=== PATIENT | female | born 2000 | race Caucasian/White ===

== ENCOUNTER 2020-02-26 02:34 | Emergency (ER) | payer BC ==
[2020-02-26 02:42] VITALS: BP 119/73; PULSE 124; RESP 18; TEMP 98
--- NOTE | 2020-02-26 03:31 | XR ---
EXAMINATION TYPE: XR wrist complete RT DATE OF EXAM: 02/26/2020 COMPARISON: NONE HISTORY: Pain TECHNIQUE: 5 views FINDINGS: I see no fracture nor dislocation. Joint spaces are fairly normal. Metacarpals are intact. Scaphoid appears normal. IMPRESSION: Negative exam. No sign of a fracture.
--- NOTE | 2020-02-26 03:33 | XR ---
EXAMINATION TYPE: XR hand complete RT DATE OF EXAM: 02/26/2020 COMPARISON: NONE HISTORY: Pain TECHNIQUE: 3 views FINDINGS: On the lateral view there is a small step deformity in the cortex of the anterior base of t he fifth metacarpal. The other metacarpals appear intact. Joint spaces are normal. IMPRESSION: Nondisplaced fracture of the anterior base of the fifth metacarpal seen only on the later al view.
--- NOTE | 2020-02-26 03:34 | ED ---
Upper Extremity HPI - General Chief Complaint: Extremity Injury, Upper Stated Complaint: Wrist injury Time Seen by Provider: 02/26/20 03:24 Source: patient Mode of arrival: ambulatory Limitations: no limitations - History of Present Illness Initial Comments: This patient is a 19-year-old woman who presents to have evaluation of her right hand. She states that approximately 9 PM she punched a door frame due to anger. Patient denies previous surgery or injury to that hand or wrist. Patient denies any loss of function. MD Complaint: Injury to:: right, hand Onset/Timin -: hour(s) Other Extremity Injury: Hand: Right Other Injuries: none Handedness: right Place: home Improves With: immobilization Worsens With: movement of extremity Context: direct blow Associated Symptoms: denies other symptoms Treatments Prior to Arrival: cold therapy - Related Data Home Medications Medication Instructions Recorded Confirmed Albuterol Nebulizer 1 applicate IH QID PRN 03/01/16 03/04/16 Control Pill 1 tab PO QAM 03/01/16 03/04/16 Pulmicort Nebulizer 1 applicate IH TID PRN 03/01/16 03/04/16 Symbicort Inhaler 2 puff IH BID 03/01/16 03/04/16 Previous Rx's Medication Instructions Recorded Ofloxacin 0.3% Ophth Soln [Ocuflox 5 - 7 drops RIGHT EAR BID #10 03/04/16 Ophth Soln] bottle Allergies Allergy/AdvReac Type Severity Reaction Status Date / Time ibuprofen [From Motrin] Allergy Wheezing Verified 03/04/16 07:56 montelukast sodium Allergy depression Verified 03/04/16 07:56 [From Singulair] NSAIDS (Non-Steroidal Allergy Unknown Verified 02/26/20 02:42 Anti-Inflamma Review of Systems ROS Statement: Those systems with pertinent positive or pertinent negative responses have been documented in the HPI. ROS Other: All systems not noted in ROS Statement are negative. Musculoskeletal: Reports: as per HPI, joint swelling, arthralgia Neurological: Denies: weakness, numbness, paresthesias Past Medical History Past Medical History: Asthma Additional Past Medical History / Comment(s): migraines, History of Any Multi-Drug Resistant Organisms: None Reported Past Surgical History: Adenoidectomy, Ear Surgery, Tonsillectomy Additional Past Surgical History / Comment(s): tubes in ears Past Anesthesia/Blood Transfusion Reactions: No Reported Reaction Past Psychological History: No Psychological Hx Reported Smoking Status: Former smoker Past Alcohol Use History: None Reported Past Drug Use History: None Reported - Past Family History Mother Family Medical History: No Reported History General Exam Limitations: no limitations General appearance: alert, in no apparent distress Cardiovascular Exam: Present: other (Strong radial pulses and normal capillary refill.) Right Hand Wrist exam: Present: full ROM, tenderness, swelling. Absent: abrasion, laceration, ecchymosis, deformity, crepitus, dislocation, erythema, amputation, nail avulsion, subungual hematoma Neurosensory exam: Present: 2-point discrimination Vascular: Present: normal capillary refill, radial pulse (Normal) Neurological exam: Present: alert. Absent: motor sensory deficit Skin exam: Present: warm, dry, intact, normal color. Absent: rash Course Vital Signs 02/26/20 02/26/20 02:37 03:56 Temperature 98 F 98 F Pulse Rate 124 H 124 H Respiratory 18 18 Rate Blood Pressure 119/73 119/73 O2 Sat by Pulse 100 100 Oximetry Procedures - Orthopedic Splinting/Casting Injury #1 Side: right Upper Extremity Injury Location: hand Upper Extremity Immobilizer: ulnar gutter Disposition Clinical Impression: Fracture of hand Disposition: HOME SELF-CARE Condition: Good Instructions (If sedation given, give patient instructions): Hand Fracture (ED) Is patient prescribed a controlled substance at d/c from ED?: No Referrals: Krish Vargas MD [Primary Care Provider] - 1-2 days Mal Lyons DO [Medical Doctor] - 1-2 days
[2020-02-26] MEDS ORDERED: ACETAMINOPHEN TAB 325 MG TAB PO STA (03:46)
== END 2020-02-26 03:57 | disposition home or self-care (01) ==
LOC: EC 02:34
DX: S62.344A Nondisplaced fracture of base of fourth metacarpal bone, right hand, initial encounter for closed fracture (principal); J45.909 Unspecified asthma, uncomplicated; Z79.51 Long term (current) use of inhaled steroids; Z88.6 Allergy status to analgesic agent; Z88.8 Allergy status to other drugs, medicaments and biological substances; Z87.891 Personal history of nicotine dependence; W22.09XA Striking against other stationary object, initial encounter
CPT/HCPCS: 29125; 99283

== ENCOUNTER 2021-01-30 13:02 | Outpatient (CLI) | payer BC, OTHER ==
[2021-01-30 14:21] VITALS: BP 121/65; PULSE 90; RESP 14; TEMP 96.9
--- NOTE | 2021-03-15 11:17 | P.MSEPDOC ---
Presenting Problems - Arrival Data Date of Arrival on Unit: 01/30/21 Time of Arrival on Unit: 13:02 Mode of Transport: Ambulatory - Complaint OB-Reason for Admission/Chief Complaint: Decreased Movement Medical History - Information : 1 Para: 0 Term: 0 : 0 Abortions: Spontaneous or Elective: 0 Number of Living Children: 0 - Gestational Age Gestational Age by [place] (wks/days): 37 Weeks and 1 Days Review of Systems - Review of Systems Constitutional: No problems Breast: No problems ENT: No problems Cardiovascular: No problems Respiratory: No problems Gastrointestinal: No problems Genitourinary: No problems Musculoskeletal: No problems Neurological: No problems Skin: No problems Vital Signs - Temperature Temperature: 96.9 F Temperature Source: Tympanic - Pulse Right Brachial Pulse Rate: 90 Pulse Assessment Method: Automatic Cuff - Respirations Respiratory Rate: 14 Oxygen Delivery Method: Room Air - Blood Pressure Right Arm Blood Pressure: 121/65 Blood Pressure Mean: 83 Blood Pressure Source: Automatic Cuff Medical Screen Scoring - Assessment - Baby A Baseline FHR: 130 Physician Notification - Physician Notified Physician Notified Date: 01/30/21 Physician Notified Time: 13:40 Physician: Dr. Valentine New Order Received: Yes - Notification Comment Comment: d/c home Disposition - Disposition OB Disposition: Discharge to home Discharge Date: 01/30/21 Discharge Time: 13:45 I agree with the RN Medical Screening Exam: Yes Physician's MSE Comment: I have neither seen nor examined the patient. Case reviewed; plan agreed upon as documented in EMR&OBIX.: Yes Diagnosis: RELATED CONDITIONS, UNSPECIFIED, THIRD TRIMESTER
== END 2021-01-30 14:25 | disposition home or self-care (01) ==
LOC: FBPOP 13:02
PROVIDERS: ATTEND Obstetrics & Gynecology
DX: O36.8130 Decreased fetal movements, third trimester, not applicable or unspecified (principal); Z3A.37 37 weeks gestation of pregnancy; Z88.8 Allergy status to other drugs, medicaments and biological substances; Z87.891 Personal history of nicotine dependence
CPT/HCPCS: 59025; 99213

== ENCOUNTER 2021-02-02 20:39 | Outpatient (CLI) | payer BC, OTHER ==
[2021-02-02 22:33] VITALS: BP 133/76; PULSE 104; RESP 16; TEMP 97.2
--- NOTE | 2021-02-16 07:47 | P.MSEPDOC ---
Presenting Problems - Arrival Data Date of Arrival on Unit: 02/02/21 Time of Arrival on Unit: 20:39 Mode of Transport: Ambulatory - Complaint OB-Reason for Admission/Chief Complaint: Possible Onset of Labor Comment: contractions 5 mins apart Medical History - Information : 1 Para: 0 Term: 0 : 0 Abortions: Spontaneous or Elective: 0 Number of Living Children: 0 - Gestational Age Gestational Age by [place] (wks/days): 37 Weeks and 4 Days Review of Systems - Review of Systems Constitutional: No problems Breast: No problems ENT: No problems Cardiovascular: No problems Respiratory: No problems Gastrointestinal: No problems Genitourinary: No problems Musculoskeletal: No problems Neurological: No problems Skin: No problems Vital Signs - Temperature Temperature: 97.2 F Temperature Source: Temporal Artery Scan - Pulse Pulse Oximetery Pulse Rate: 104 Pulse Assessment Method: Pulse Oximetry - Respirations Respiratory Rate: 16 Oxygen Delivery Method: Room Air O2 Sat by Pulse Oximetry: 97 - Blood Pressure Left Arm Blood Pressure: 133/76 Blood Pressure Mean: 95 Blood Pressure Source: Automatic Cuff Medical Screen Scoring (Pre) - Cervical Exam Dilation: 1-3 cm = 1 Effacement: Exam Deferred Membranes: Intact - Uterine Contractions Frequency: > or = 36 weeks =2 Duration: > 40 seconds = 2 Intensity: N/A - Maternal Vital Signs Maternal Temperature: N/A Maternal Blood Pressure: N/A Signs of Preeclampsia: N/A Maternal Respirations: N/A - Maternal Trauma Maternal Trauma: N/A - Assessment - Baby A Baseline FHR: 120 Heart Rate - NICHD Category: Category I (Normal) = 0 NST: Reactive Position: N/A Station: N/A - Total Score - Baby A Total Score - Baby A: 5 - Total Score - Baby B Total Score - Baby B: 5 - Total Score - Baby C Total Score - Baby C: 5 - Level of Risk - Baby A Level of Risk - Baby A: Low (0-5) - Level of Risk - Baby B Level of Risk - Baby B: Low (0-5) - Level of Risk - Baby C Level of Risk - Baby C: Low (0-5) Physician Notification (Pre) - Physician Notified Physician Notified Date: 02/02/21 Physician Notified Time: 21:07 New Order Received: Yes - Notification Comment Comment: Dr. Olguin called, report given on maternal. and status, pt's complaints of contractions. since 1729, possible ROM, negative amnisure,. contractions 3-5mins apart, pt able to talk through. them. SVE /-2, NST reactive. Orders to recheck in. 1 hour and discharge if not cervical change. Pt to. keep her appointment for tomorrow with dr. hernandez Disposition - Disposition OB Disposition: Physician follow up in office, Discharge to home Discharge Date: 02/02/21 Discharge Time: 22:15 I agree with the RN Medical Screening Exam: Yes Case reviewed; plan agreed upon as documented in EMR&OBIX.: Yes Comments: Patient was neither seen nor examined by me Diagnosis: FALSE LABOR AT OR AFTER 37 COMPLETED WEEKS OF GESTATION
== END 2021-02-02 22:15 | disposition home or self-care (01) ==
LOC: FBPOP 20:39
PROVIDERS: ATTEND Obstetrics & Gynecology
DX: O47.1 False labor at or after 37 completed weeks of gestation (principal); Z3A.37 37 weeks gestation of pregnancy; Z88.6 Allergy status to analgesic agent; Z87.891 Personal history of nicotine dependence; Z88.8 Allergy status to other drugs, medicaments and biological substances
CPT/HCPCS: 59025; 84112; 99213

== ENCOUNTER 2021-02-12 06:35 | Inpatient (IN) | payer BC, OTHER ==
[2021-02-12] MEDS: LACTATED RINGERS 1,000 ML IV SCH ×3 (07:20→16:20)
[2021-02-12] MEDS ORDERED: OXYTOCIN 10 UNIT/ML 1 ML VIAL IM PRN (08:35)
[2021-02-12] MEDS ORDERED: METHYLERGONOVINE 0.2 MG/ML 1 ML AMP IM PRN (08:35)
[2021-02-12] MEDS ORDERED: CARBOPROST TROMETHAMINE 250 MCG/ML 1 ML AMP IM PRN (08:35)
[2021-02-12] MEDS ORDERED: TERBUTALINE 1 MG/ML VIAL SQ PRN (08:35)
[2021-02-12] MEDS ORDERED: LIDOCAINE 0.5% (PF) 5 MG/ML (50 ML SDV) SQ PRN (08:35)
[2021-02-12] MEDS ORDERED: BUTORPHANOL 1 MG/ML 1 ML VIAL IV PRN (08:37)
--- NOTE | 2021-02-12 08:42 | P.HPOB ---
History of Present Illness H&P Date: 02/12/21 Chief Complaint: 39-0/7 weeks, LGA, polyhydramnios The patient is a 20-year-old 1 para 0 admitted at 39-0/7 weeks as established by seven-week ultrasound. She is admitted for essentially elective induction with all signs reassuring, category 1 heart rate tracing. Her has been uncomplicated only by a late third trimester diagnosis of suspected macrosomia with growth at the 96 percentile. She is additionally found to have mild polyhydramnios. testing has been reassuring throughout. Her was otherwise uncomplicated and group B strep status is negative. Obstetrical history: 1 para 0 with current statistics listed in history of present illness. EDC of 02/19/2021 was established by seven-week ultrasound. Laboratory workup demonstrates a blood type of O- with a negative antibody screen. Rubella status is immune. Remainder of laboratory workup was within normal limits. Early Glucola as well as second trimester Glucola were within normal limits and group B strep status is negative. Gynecologic history: Unremarkable with no history of any infections to include STDs. Review of Systems Review of systems is confined to history of present illness. Past Medical History Past Medical History: Asthma Additional Past Medical History / Comment(s): migraines, History of Any Multi-Drug Resistant Organisms: None Reported Past Surgical History: Adenoidectomy, Ear Surgery, Tonsillectomy Additional Past Surgical History / Comment(s): tubes in ears Past Anesthesia/Blood Transfusion Reactions: No Reported Reaction Smoking Status: Never smoker - Past Family History Mother Family Medical History: No Reported History Medications and Allergies Home Medications Medication Instructions Recorded Confirmed Type Ferrous Sulfate [Iron] 1 tab PO DAILY 01/30/21 02/02/21 History Pnv,Calcium 72/Iron/Folic Acid 1 tablet PO DAILY 01/30/21 02/02/21 History [ Plus Tablet] Allergies Allergy/AdvReac Type Severity Reaction Status Date / Time ibuprofen [From Motrin] Allergy Wheezing Verified 02/02/21 21:14 montelukast sodium Allergy depression Verified 02/02/21 21:14 [From Singulair] NSAIDS (Non-Steroidal Allergy Unknown Verified 02/02/21 21:14 Anti-Inflamma Exam In general, this is a well-developed, well-nourished white female in no acute distress. Her heart has a regular rhythm and rate without murmur. Her lungs are clear to auscultation bilaterally in all gomez. Her abdomen is gravid, nondistended, has normal active bowel sounds, is soft, nontender, and without any palpable masses aside from the uterine fundus. Her extremities without any cyanosis, clubbing, or significant edema and are nontender to palpation bilaterally. Digital cervical examination demonstrates her cervix to be 1-2 sent meters dilated, 70% effaced, with the vertex in presentation at -2-3 s tation. Artificial rupture of membranes is carried out demonstrating clear fluid. Assessment and Plan (1) Term Current Visit: Yes Status: Acute Code(s): Z34.90 - ENCNTR FOR SUPRVSN OF NORMAL , UNSP, UNSP TRIMESTER SNOMED Code(s): 65984978 (2) Polyhydramnios Current Visit: Yes Status: Acute Code(s): O40.9XX0 - POLYHYDRAMNIOS, UNSP TRIMESTER, NOT APPLICABLE OR UNSP SNOMED Code(s): 07210959 (3) Large for gestational age fetus Current Visit: Yes Status: Acute Code(s): HCZ5547 - SNOMED Code(s): 201126434 Plan: The patient has been admitted for induction of labor. Pitocin augmentation has been started and she has undergone artificial rupture of membranes. She will continue to have close maternal and surveillance and expectant management will be practiced. She is a good candidate for either IV or epidural analgesia, whichever she may choose.
[2021-02-12] MEDS ORDERED: OXYTOCIN 30 UNITS/500 ML NS 30 UNIT in SALINE 1 500ML.BAG IV SCH ×2 (08:45→19:30)
[2021-02-12 09:25] LABS: Basophils # (A) 0.1 k/uL (0-0.2); Basophils % (A) 1 %; Eosinophils # (A) 0.2 k/uL (0-0.7); Eosinophils % (A) 2 %; HCT 31.8 % (34.0-46.0); HGB 10.8 gm/dL (11.4-16.0); Lymphocytes # (A) 1.9 k/uL (1.0-4.8); Lymphocytes % (A) 18 %; MCH 26.1 pg (25.0-35.0); MCHC 33.8 g/dL (31.0-37.0); MCV 77.2 fL (80.0-100.0); Mean Platelet Volume 7.3; Monocytes # (A) 0.6 k/uL (0-1.0); Monocytes % (A) 6 %; Neutrophils # (A) 7.3 k/uL (1.3-7.7); Neutrophils % (A) 72 %; Platelet Count 279 k/uL (150-450); RBC 4.12 m/uL (3.80-5.40); WBC 10.2 k/uL (4.0-11.0)
[2021-02-12] MEDS ORDERED: ROPIVACAINE 5MG/ML 20ML VIAL ONE (11:37)
[2021-02-12] MEDS ORDERED: SODIUM CHLORIDE 0.9% 100 ML BAG ONE (11:37)
[2021-02-12] MEDS ORDERED: fentaNYL (PF) 50 MCG/ML 5 ML AMP ONE (11:37)
[2021-02-12] MEDS ORDERED: SIMETHICONE 80 MG CHEWABLE PO PRN (19:17)
[2021-02-12] MEDS ORDERED: HYDROcodone/APAP 7.5-325MG 1 EACH TAB PO PRN (19:17)
[2021-02-12] MEDS ORDERED: LANOLIN CREAM 5 GM TUBE TOPICAL PRN (19:17)
[2021-02-12] MEDS ORDERED: HYDROCORTISONE 2.5% RECTAL CREAM 30 GM TUBE RECTAL PRN (19:17)
[2021-02-12] MEDS ORDERED: diphenhydrAMINE 25 MG CAP PO PRN (19:17)
[2021-02-12] MEDS ORDERED: ZOLPIDEM 5 MG TAB PO PRN (19:17)
[2021-02-12] MEDS ORDERED: HYDROcodone/APAP 5-325MG 1 EACH TAB PO PRN (19:17)
[2021-02-12] MEDS ORDERED: BENZOCAINE/MENTHOL SPRAY 1 GM/SPRAY AEROSOL TOPICAL PRN (19:17)
[2021-02-12] MEDS ORDERED: diphenhydrAMINE 50 MG CAP PO PRN (19:17)
[2021-02-12] MEDS ORDERED: diphenhydrAMINE 50 MG/ML 1 ML VIAL IVP PRN ×2 (19:17)
--- NOTE | 2021-02-12 19:21 | P.PROBDLV ---
Vaginal Delivery Note - . Vaginal Delivery Note: The patient is a 20-year-old 1 para 0 admitted at 39-0/7 weeks by good dating parameters. She is admitted for elective induction of labor with the diagnosis of polyhydramnios and suspected macrosomia, growth at the 96th percentile late in the third trimester. On labor and delivery, all signs were reassuring with a category 1 heart rate tracing. She had Pitocin augmentation started and underwent artificial rupture of membranes for clear f luid. She made fairly steady progress through the latent phase of labor and had an epidural catheter placed for analgesia. She then made fairly good progress to the active phase of labor and ultimately reached complete and +2 station. She began pushing and pushed for approximately 35 minutes to a normal spontaneous vaginal delivery of a viable 8 lbs. 5 oz. baby girl with Apgars of 7 at 1 minute and 8 at 5 minutes delivered in the left occiput anterior position. There was a nuchal cord 1 which was reduced following delivery of the infant. The placenta was delivered spontaneously, intact, and grossly normal with a grossly normal, roughly centrally inserted three-vessel cord. A second-degree midline episiotomy had been cut for the delivery in anticipation of possible shoulder dystocia secondary to macrosomia and was noted to have not extended. It was repaired in standard fashion using 3-0 chromic catgut without difficulty. Estimated blood loss for the entire case was approximately 250 mL. There were no complications. All sponge, instrument, and needle counts were correct. Both mother and are resting comfortably in recovery at this time.
[2021-02-12] MEDS: ACETAMINOPHEN TAB 325 MG TAB PO PRN (21:40)
[2021-02-12] MEDS: SENNOSIDES-DOCUSATE SODIUM 1 EACH TAB PO SCH (21:41)
[2021-02-12] MEDS: ESCITALOPRAM 10 MG TAB PO SCH (23:12)
[2021-02-13] MEDS ORDERED: Rhogam IMMUNE GLOBULIN 1,500 UNIT/1 ML IM ONE (01:32)
[2021-02-13] MEDS: ACETAMINOPHEN TAB 325 MG TAB PO PRN ×4 (02:36→21:35)
[2021-02-13] MEDS: SENNOSIDES-DOCUSATE SODIUM 1 EACH TAB PO SCH ×2 (07:46→21:30)
--- NOTE | 2021-02-13 08:52 | P.PNOBGVD ---
Subjective - Subjective Patient reports: Reports appetite normal, Reports voiding normally, Reports pain well controlled, Reports ambulating normally [place]: doing well, in NICU (Requiring high flow oxygen, currently beginning to wean) Objective - Latest Vital Signs Latest vital signs: Vital Signs Temp Pulse Resp BP Pulse Ox 02/13/21 08:00 98.0 F 71 16 102/61 02/13/21 04:00 98.3 F 84 16 110/66 99 02/12/21 23:50 98.5 F 82 16 105/66 98 02/12/21 21:12 100 16 114/70 02/12/21 20:42 98 F 102 H 16 114/70 02/12/21 20:12 96 16 112/64 02/12/21 19:57 109 H 16 108/64 02/12/21 19:42 100 16 104/62 02/12/21 19:27 95 16 98/56 02/12/21 19:12 114 H 16 103/67 Intake and Output 02/12/21 02/13/21 02/13/21 22:59 06:59 14:59 Intake Total 178.533 Balance 178.533 Intake: Intake, IV Titration 178.533 Amount Oxytocin 30 Units/500 ml 178.533 Ns 30 unit In Saline 1 500ml.bag @ Per Protocol IV [facility] Rx#:[id number] Other: # Voids 1 - Exam Extremities: Present: normal Abdomen: Present: normal appearance, soft Uterus: Present: normal, firm (The uterine fundus is tonic and nontender below the umbilicus.) - Labs Labs: Abnormal Lab Results - Last 24 Hours (Table) 02/12/21 Range/Units 07:15 Hgb 10.8 L (11.4-16.0) gm/dL Hct 31.8 L (34.0-46.0) % MCV 77.2 L (80.0-100.0) fL Assessment and Plan (1) Term Current Visit: Yes Status: Acute Code(s): Z34.90 - ENCNTR FOR SUPRVSN OF NORMAL , UNSP, UNSP TRIMESTER SNOMED Code(s): 40142490 (2) Polyhydramnios Current Visit: Yes Status: Acute Code(s): O40.9XX0 - POLYHYDRAMNIOS, UNSP TRIMESTER, NOT APPLICABLE OR UNSP SNOMED Code(s): 42224401 (3) Large for gestational age fetus Current Visit: Yes Status: Acute Code(s): KXE1427 - SNOMED Code(s): 111874522 (4) Normal spontaneous vaginal delivery Current Visit: Yes Status: Acute Code(s): O80 - ENCOUNTER FOR FULL-TERM UNCOMPLICATED DELIVERY SNOMED Code(s): 88540345 Plan: Continue routine care. I would anticipate discharge home tomorrow pending no complications. It is unclear at this point as to whether the infant will require a longer term stay.
[2021-02-13 09:35] LABS: Basophils % (A) 0 %; Eosinophils # (A) 0.1 k/uL (0-0.7); Eosinophils % (A) 1 %; HCT 31.9 % (34.0-46.0); HGB 10.3 gm/dL (11.4-16.0); Lymphocytes # (A) 1.9 k/uL (1.0-4.8); Lymphocytes % (A) 14 %; MCH 25.1 pg (25.0-35.0); MCHC 32.3 g/dL (31.0-37.0); MCV 77.8 fL (80.0-100.0); Mean Platelet Volume 7.3; Monocytes # (A) 0.7 k/uL (0-1.0); Monocytes % (A) 5 %; Neutrophils # (A) 10.2 k/uL (1.3-7.7); Neutrophils % (A) 78 %; Platelet Count 280 k/uL (150-450); RBC 4.09 m/uL (3.80-5.40); RDW 14.1 % (11.5-15.5); WBC 13.1 k/uL (4.0-11.0)
[2021-02-13] MEDS: ESCITALOPRAM 10 MG TAB PO SCH (21:31)
[2021-02-14] MEDS: ACETAMINOPHEN TAB 325 MG TAB PO PRN ×4 (01:46→16:29)
--- NOTE | 2021-02-14 10:16 | P.DS ---
Providers Date of admission: 02/12/21 06:35 Expected date of discharge: 02/14/21 Attending physician: Ed Camejo Primary care physician: Stated None - Discharge Diagnosis(es) (1) Large for gestational age fetus Current Visit: Yes Status: Acute (2) Normal spontaneous vaginal delivery Current Visit: Yes Status: Acute (3) Nuchal cord, delivered, current hospitalization Current Visit: Yes Status: Acute (4) Polyhydramnios Current Visit: Yes Status: Acute (5) Term Current Visit: Yes Status: Acute Hospital Course: This is a 20-year-old 1 now para 1 woman who is admitted at 39 weeks gestation for induction of labor. She had suspected macrosomia. Follow ing admission she underwent a Pitocin induction of labor with artificial rupture of membranes. She received an epidural anesthetic. She went on to deliver a liveborn female infant over a second-degree midline episiotomy weighing 8 lbs. 5 oz. Apgars 7 at 1 minute and 8 at 5 minutes. There was a nuchal cord 1. Please see the delivery summary for details. For supplemental oxygen. The patient's course was unremarkable. By day #1 she was ambulating and voiding without difficulty. Her lochia was moderate. She is using the breast pump successfully. By day #2 she continued to do well. She requested her Lexapro be restarted. Her lochia was decreasing. Her vital signs were stable. She was therefore discharged home with routine instructions for care and follow-up. Procedures: Normal spontaneous vaginal delivery and repair of second-degree midline episiotomy. Patient Condition at Discharge: Good Plan - Discharge Summary New Discharge Prescriptions: New Escitalopram [Lexapro] 10 mg PO DAILY@2100 #30 tab No Action Pnv,Calcium 72/Iron/Folic Acid [ Plus Tablet] 1 tablet PO DAILY MDD 1 tab Ferrous Sulfate [Iron] 1 tab PO DAILY MDD 325 mg Acetaminophen Tab [Tylenol] 650 mg PO Q4H MDD 4000 mg Calcium Carbonate [Tums] 500 mg PO TID MDD 1500 mg Albuterol Inhaler [Ventolin Hfa Inhaler] 2 puff INHALATION RT-TID MDD 6 puffs daily Discharge Medication List Ferrous Sulfate [Iron] 1 tab PO DAILY MDD 325 mg 01/30/21 [History] Pnv,Calcium 72/Iron/Folic Acid [ Plus Tablet] 1 tablet PO DAILY MDD 1 tab 01/30/21 [History] Acetaminophen Tab [Tylenol] 650 mg PO Q4H MDD 4000 mg 02/12/21 [History] Albuterol Inhaler [Ventolin Hfa Inhaler] 2 puff INHALATION RT-TID MDD 6 puffs daily 02/12/21 [History] Calcium Carbonate [Tums] 500 mg PO TID MDD 1500 mg 02/12/21 [History] Escitalopram [Lexapro] 10 mg PO DAILY@2100 #30 tab 02/14/21 [Rx] Follow up Appointment(s)/Referral(s): Ed Camejo MD [STAFF PHYSICIAN] - 6 Weeks Activity/Diet/Wound Care/Special Instructions: Follow-up in the office in 6 weeks . Call with any concerning signs or symptoms including heavy vaginal bleeding, severe abdominal pain, fever greater than 101, swelling or redness of the lower extremities, foul vaginal discharge, or signs of depression. Nothing in the vagina for 6 weeks after delivery, specifically no intercourse.
[2021-02-14] MEDS: SENNOSIDES-DOCUSATE SODIUM 1 EACH TAB PO SCH (10:55)
[2021-02-14 17:03] VITALS: RESP 14
[2021-02-14 17:05] VITALS: BP 112/80; PULSE 72; TEMP 97.6
== END 2021-02-14 17:08 | disposition home or self-care (01) | DRG 807 ==
LOC: 4FBP 06:35
PROVIDERS: ADMIT Obstetrics & Gynecology; ATTEND Obstetrics & Gynecology
PROC: 10E0XZZ Delivery of Products of Conception, External Approach (ICD-10-PCS; principal; 2021-02-12)
DX: O36.63X0 Maternal care for excessive fetal growth, third trimester, not applicable or unspecified (principal); Z37.0 Single live birth; J45.909 Unspecified asthma, uncomplicated; O40.3XX0 Polyhydramnios, third trimester, not applicable or unspecified; O69.81X0 Labor and delivery complicated by cord around neck, without compression, not applicable or unspecified; O99.52 Diseases of the respiratory system complicating childbirth; Z3A.39 39 weeks gestation of pregnancy
CPT/HCPCS: 85025; 85461; 86850; 86900; 86901

== ENCOUNTER 2022-01-14 08:00 | Day surgery (SDC) | payer BC, OTHER ==
[2022-01-12 12:57] VITALS: BMI 32.5
[~2022-01-14 08:00] MED LIST: FAMOTIDINE 20 MG/2 ML VIAL IV PRN
[2022-01-14] MEDS ORDERED: LACTATED RINGERS 1,000 ML IV SCH (08:18)
[2022-01-14] MEDS ORDERED: DEXAMETHASONE SOD PHOSPHATE 4 MG/ML 1 ML VIAL IV ONE (08:18)
[2022-01-14] MEDS ORDERED: ONDANSETRON 4 MG/2 ML VIAL IVP ONE (08:18)
[2022-01-14] MEDS: OXYMETAZOLINE 0.05% NASL SPRAY 1 SPRAY BOTTLE EA NOSTRIL PRN ×5 (08:35→08:55)
[2022-01-14] MEDS ORDERED: SUCCINYLCHOLINE CHLORIDE 100 MG/5 ML SYR IV ONE (10:08)
[2022-01-14] MEDS ORDERED: LIDOCAINE 1% INJ 10MG/ML (20 ML MDV) ONE (10:08)
[2022-01-14] MEDS ORDERED: PROPOFOL 10 MG/ML 20 ML VIAL IV ONE (10:08)
[2022-01-14] MEDS ORDERED: MIDAZOLAM 2 MG/2 ML VIAL ONE (10:08)
[2022-01-14] MEDS ORDERED: CIPROFLOX/FLUOCIN OTIC 0.25ML DROPERETTE OTIC ONE (10:21)
[2022-01-14] MEDS ORDERED: LIDOCAINE 1%-EPI 1:100,000 20 ML VIAL SQ ONE (10:23)
[2022-01-14 10:59] VITALS: TEMP 97.2
[2022-01-14] MEDS ORDERED: diphenhydrAMINE 50 MG/ML 1 ML VIAL IVP ONE (11:00)
--- NOTE | 2022-01-14 11:01 | P.OP ---
Date of Procedure: 01/14/22 Preoperative Diagnosis: Chronic otitis media with effusion Eustachian tube obstruction bilaterally Postoperative Diagnosis: same Procedure(s) Performed: Bilateral tympanostomy with tube placement Bilateral Balloon eustachian tuboplasty Anesthesia: LANE Surgeon: Shiraz Obrien Estimated Blood Loss (ml): 0 Pathology: none sent Condition: stable Disposition: PACU Indications for Procedure: This patient is a 21-year-old white female who is been complaining of ear pain pressure and has had persistent middle ear effusion. Eustachian tube dysfunction had been problematic for an extended period time and has failed medical therapy. She's had a lifetime of chronic ear problems. She also admits to decreased hearing along with her ear pain. Operative Findings: Patient had a bilateral middle ear effusion. The tympanic membranes had been myringosclerosis and atrophic changes noted. Eustachian tube orifice was edematous Description of Procedure: Patient was taken to the operative room and placed in the supine position. A general inhalation anesthetic was administered the patient by mask and subsequently intubated with a cuffed endotracheal tube by the department of anesthesia with a functioning IV line in place. Patient was monitored throughout the entire case by the department of anesthesia. Both ears were visualized with a 250 mm Zeiss microscope and cerumen and epithelial debris was removed. Tympanostomy incisions were made bilaterally and fluid was suctioned and tympanostomy tubes were inserted. We utilized ultraseal tubes. Ofloxacin drops was instilled bilaterally. The nose was decongested with Afrin nasal spray and with the 0 Calvert yajaira scope we entered the nose and identified the eustachian tube orifice. We utilized an a Rogelio balloon for insufflation of the eustachian tube. This was done in a standard protocol fashion. This was done bilaterally. Both eustachian tubes were bilaterally insufflated and the patient tolerated this well. All instrumentation was removed. The patient was taken to postanesthesia recovery in excellent condition.
[2022-01-14] MEDS ORDERED: SODIUM CHLORIDE 0.9% 1,000 ML IV ONE (11:33)
[2022-01-14 11:36] VITALS: RESP 18
[2022-01-14 11:52] VITALS: BP 107/65; PULSE 63
== END 2022-01-14 12:38 | disposition home or self-care (01) ==
LOC: OR 08:00
PROVIDERS: ATTEND Otolaryngology
DX: H65.493 Other chronic nonsuppurative otitis media, bilateral (principal); H68.133 Extrinsic cartilagenous obstruction of Eustachian tube, bilateral; H90.0 Conductive hearing loss, bilateral; J45.20 Mild intermittent asthma, uncomplicated; G43.909 Migraine, unspecified, not intractable, without status migrainosus; H93.19 Tinnitus, unspecified ear; L30.9 Dermatitis, unspecified; Z79.899 Other long term (current) drug therapy; Z88.6 Allergy status to analgesic agent; Z88.8 Allergy status to other drugs, medicaments and biological substances; Z90.89 Acquired absence of other organs; Z98.890 Other specified postprocedural states; Z82.5 Family history of asthma and other chronic lower respiratory diseases
CPT/HCPCS: 81025; 69436; C1726; J2250; J1200; J1100; J2405; J2001; J0330; J2704

== ENCOUNTER 2022-04-09 14:49 | Emergency (ER) | payer BC, OTHER ==
[2022-04-09 14:54] VITALS: BP 117/70; PULSE 89; RESP 20; TEMP 98.2
[2022-04-09 15:16] LABS: Basophils % (A) 1 %; Eosinophils # (A) 0.2 k/uL (0-0.7); Eosinophils % (A) 2 %; HCT 41.6 % (34.0-46.0); HGB 13.6 gm/dL (11.4-16.0); Lymphocytes # (A) 1.7 k/uL (1.0-4.8); Lymphocytes % (A) 25 %; MCH 27.5 pg (25.0-35.0); MCHC 32.6 g/dL (31.0-37.0); MCV 84.1 fL (80.0-100.0); Mean Platelet Volume 7.6; Monocytes # (A) 0.4 k/uL (0-1.0); Monocytes % (A) 6 %; Neutrophils # (A) 4.3 k/uL (1.3-7.7); Neutrophils % (A) 64 %; Platelet Count 263 k/uL (150-450); RBC 4.94 m/uL (3.80-5.40); WBC 6.7 k/uL (3.8-10.6)
[2022-04-09 15:25] LABS: ALT 11 U/L (4-34); AST 20 U/L (14-36); African American GFR (CKD) >90 (>60 ml/min/1.73 sqM); Albumin 4.5 g/dL (3.5-5.0); Alkaline Phosphatase 119 U/L (38-126); Anion Gap 8 mmol/L; Blood Urea Nitrogen 8 mg/dL (7-17); Calcium 9.4 mg/dL (8.4-10.2); Carbon Dioxide 25 mmol/L (22-30); Chloride 104 mmol/L (98-107); Glucose 93 mg/dL (74-99); Non-African American GFR(CKD) >90 (>60 ml/min/1.73 sqM); Sodium 137 mmol/L (137-145); Total Bilirubin 0.4 mg/dL (0.2-1.3); Total Protein 7.5 g/dL (6.3-8.2)
== END 2022-04-09 17:03 | disposition left against medical advice (07) ==
LOC: EC 14:49
DX: Z53.21 Procedure and treatment not carried out due to patient leaving prior to being seen by health care provider (principal); N93.9 Abnormal uterine and vaginal bleeding, unspecified
CPT/HCPCS: 36415; 80053; 85025; 99499

== ENCOUNTER → 2022-04-14 | Outpatient (CLI) | payer BC, OTHER ==
--- NOTE | 2022-04-14 18:28 | CT ---
EXAMINATION TYPE: CT abdomen pelvis w con DATE OF EXAM: 04/14/2022 COMPARISON: None HISTORY: low abd pain w/ blood in stool CT DLP: 1036.5 mGycm Automated exposure control for dose reduction was used. CONTRAST: Performed with IV Contrast, patient injected with 100ml mL of Isovue 300. Images obtained from the diaphragm to the floor the pelvis with oral and IV contrast. Lung bases are clear. No pleural effusion. Heart appears normal. No pericardial effusion. Liver splee n and stomach pancreas gallbladder appear intact. The bile duct are not dilated. There is no adrenal mass. Kidneys of normal size and contour. No hydronephrosis. Ureters are not dila iwona. There is no retroperitoneal adenopathy. Bladder distends smoothly. No inguinal hernia. Uterus is anteverted. There is IUD in good position in the uterine fundus. No pelvic mass. No free fluid in th e pelvis. Appendix is posterior and appears normal. There is no mesenteric edema. No ascites or free air. There is no bowel obstruction. Small bowel celso yissel is normal. There is bilateral L5 spondylolysis without any significant spondylolisthesis. Lumbar disc spaces are normal. Bony pelvis is intact. The hip joints are intact. IMPRESSION: Normal appendix. Negative CT scan abdomen and pelvis. L5 spondylolysis.
== END | disposition home or self-care (01) ==
LOC: RADCTMAIN 15:56
PROVIDERS: ATTEND Family Medicine
DX: R10.30 Lower abdominal pain, unspecified (principal)
CPT/HCPCS: 74177; Q9967

== ENCOUNTER → 2023-03-09 | Outpatient (CLI) | payer BC, OTHER ==
[2023-03-09 13:04] LABS: Basophils % (A) 0 %; Eosinophils # (A) 0.2 k/uL (0-0.7); Eosinophils % (A) 3 %; HGB 12.5 gm/dL (11.4-16.0); Lymphocytes # (A) 1.8 k/uL (1.0-4.8); Lymphocytes % (A) 27 %; MCHC 31.9 g/dL (31.0-37.0); MCV 84.6 fL (80.0-100.0); Mean Platelet Volume 8.2; Monocytes # (A) 0.4 k/uL (0-1.0); Monocytes % (A) 6 %; Neutrophils # (A) 4.2 k/uL (1.3-7.7); Neutrophils % (A) 63 %; Platelet Count 260 k/uL (150-450); RBC 4.61 m/uL (3.80-5.40); RDW 12.8 % (11.5-15.5); WBC 6.7 k/uL (3.8-10.6)
--- NOTE | 2023-03-09 13:09 | CT ---
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 FINDINGS: The external auditory canals are patent bilaterally. Mastoid air cells show no evidence of abnormal opacification bilaterally. The middle ear ossicles are symmetric and unremarkable. There is no evidence of suspicious surrounding soft tissue density to suggest cholesteatoma. The scutum is preserved bilaterally. The cochlea and the semicircular canals are symmetric and unremarkable. Ves tibular aqueduct and internal carotid canal appear unremarkable. Temporomandibular joints are mainta ined bilaterally. Mild periosteal thickening maxillary sinuses and ethmoid air cells. Incidental maribel ateral middle turbinate esau bullosa. Ostiomeatal units appear patent. IMPRESSION: No significant abnormality seen to account for patient's symptoms.
[2023-03-09 13:32] LABS: T4, Free (Free Thyroxine) 1.2 ng/dL (0.78-2.19)
== END | disposition home or self-care (01) ==
LOC: RADCTMAIN 12:12
PROVIDERS: ATTEND Otolaryngology
DX: H90.71 Mixed conductive and sensorineural hearing loss, unilateral, right ear, with unrestricted hearing on the contralateral side (principal)
CPT/HCPCS: 70480; 82306; 82607; 84439; 84443; 85025; 86038

== ENCOUNTER 2023-09-09 12:23 | Day surgery (SDC) | payer BC, OTHER ==
[~2023-09-09 12:23] MED LIST changes: -FAMOTIDINE 20 MG/2 ML VIAL IV PRN; +LACTATED RINGERS 1,000 ML IV SCH; +LIDOCAINE 1% (10MG/ML) FOR IV START INTRADERMA PRN
[2023-09-09 13:34] VITALS: TEMP 97.6
[2023-09-09] MEDS ORDERED: PROPOFOL 10 MG/ML 20 ML VIAL IV ONE (13:54)
[2023-09-09] MEDS ORDERED: LIDOCAINE 1% INJ 10MG/ML (20 ML MDV) ONE (13:54)
--- NOTE | 2023-09-09 14:09 | P.PCN ---
Date of Procedure: 09/09/23 Procedure(s) Performed: BRIEF HISTORY: Patient is a 23-year-old pleasant white female scheduled for an elective colonoscopy as a part of evaluation of intermittent rectal bleeding for the last 1 year duration. PROCEDURE PERFORMED: Colonoscopy. PREOPERATIVE DIAGNOSIS: Intermittent rectal bleeding of 1 year duration. IV sedation per Anesthesia. PROCEDURE: After informed consent was obtained, the patient, was brought into the endoscopy unit. IV sedation was administered by Anesthesia under continuous monitoring. Digital rectal examination was normal. Initially the Olympus CF-160 flexible video colonoscope was then inserted in the rectum, gradually advanced into the cecum without any difficulty. Careful examination was performed as the scope was gradually being withdrawn. Ileocecal valve and the appendiceal orifice were visualized and appeared normal. Prep was excellent. Mucosa of the cecum, ascending colon, transverse colon, descending colon, sigmoid colon, and rectum appeared normal. Retroflexion was performed in the rectum and no lesions were seen. The patient tolerated the procedure well. IMPRESSION: Normal-appearing colon from rectum to cecum with no evidence of colitis or colorectal neoplasia . RECOMMENDATIONS: Findings of this examination were discussed with the patient as well as a family.. She was advised to be a high-fiber diet and take fiber supplements a regular basis and avoid straining and constipation.
[2023-09-09] MEDS ORDERED: LACTATED RINGERS 1,000 ML IV ONE (14:11)
[2023-09-09 14:47] VITALS: BP 96/63; PULSE 57; RESP 6
== END 2023-09-09 14:43 | disposition home or self-care (01) ==
LOC: ORWHC2ENDO 12:23
PROVIDERS: ATTEND Internal Medicine Gastroenterology
DX: K62.5 Hemorrhage of anus and rectum (principal); J45.909 Unspecified asthma, uncomplicated; F12.90 Cannabis use, unspecified, uncomplicated; J95.851 Ventilator associated pneumonia; G43.909 Migraine, unspecified, not intractable, without status migrainosus; Z88.1 Allergy status to other antibiotic agents; Z88.6 Allergy status to analgesic agent
CPT/HCPCS: 45378; 81025

== ENCOUNTER → 2023-10-19 | Outpatient (CLI) | payer BC ==
--- NOTE | 2023-10-19 10:11 | US ---
EXAMINATION TYPE: US abdomen complete DATE OF EXAM: 10/19/2023 COMPARISON: Correlation CT studies 04/14/2022 CLINICAL INDICATION: Female, 23 years old with history of R10.9 ABD PAIN; pain x 1 year. TECHNIQUE: Multiple sonographic images of the abdomen are obtained. FINDINGS: EXAM MEASUREMENTS: Liver Length: 15.5 cm Gallbladder Wall: 0.18 cm CBD: 0.28 cm Spleen: 10.8 cm Right Kidney: 12.0 x 5.0 x 4.9 cm Left Kidney: 12.0 x 5.2 x 5.0 cm MACHINE INSPECTOR NOTES: Limited due to gas. Pancreas: Not well seen. Liver: Mild increased echogenicity. Slight heterogeneous echotexture. No focal lesion seen. Gallbladder: Appearance of Phrygian's cap. Folds noted. No gallstones or abnormal distention. Evidence for sonographic Chicas's sign: No CBD: Appears wnl Spleen: Appears wnl Right Kidney: No hydronephrosis or masses seen Left Kidney: No hydronephrosis or masses seen Upper IVC: Appears wnl Abd Aorta: Appears wnl IMPRESSION: 1. There may be underlying hepatic steatosis or other nonspecific hepatocellular disease. 2. No gallstones or biliary ductal dilatation.
== END | disposition home or self-care (01) ==
LOC: RADUSWWP 07:07
PROVIDERS: ATTEND Family Medicine
DX: R10.9 Unspecified abdominal pain (principal)
CPT/HCPCS: 76700

== ENCOUNTER → 2023-11-02 | Outpatient (CLI) | payer BC ==
--- NOTE | 2023-11-02 09:31 | NM ---
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 Gallbladder function was also assessed after the administration of ensure drink and additional scintigraphic images were obtained of the abdomen. A re gion of interest was drawn over the gallbladder and a timing activity curve was generated. The gallbl adder ejection fraction was calculated. FINDINGS: Normal uptake of radiotracer was identified within the liver with excretion into the hepatic and comm on biliary ducts. There was normal progressive washout of the liver over the course of the study. Rad iotracer uptake within the gallbladder as well as small bowel activity was identified. Maximum calculated gallbladder ejection fraction is: 90% at 30 minutes (Normal gallbladder ejection fraction is > 35%) IMPRESSION: 1. Normal hepatobiliary scan. 2. Normal ejection fraction.
== END | disposition home or self-care (01) ==
LOC: RADNMMAIN 06:59
PROVIDERS: ATTEND Family Medicine
DX: Q44.1 Other congenital malformations of gallbladder (principal)
CPT/HCPCS: 78227; A9537; J2805

== ENCOUNTER → 2024-04-06 | Outpatient (CLI) | payer BC ==
--- NOTE | 2024-04-06 10:44 | US ---
EXAMINATION TYPE: US thyroid st tissue head/neck DATE OF EXAM: 04/06/2024 COMPARISON: NONE CLINICAL INDICATION: Female, 23 years old with history of R09.89 OTH SYMPTOMS AND SIGNS INVOLVING CIR C AND N; Difficulty swallowing, feeling of lump in throat for 2 weeks. GLAND SIZE: Right Lobe: 4.6 x 1.6 x 1.4 cm Overall Parenchyma: homogeneous Left Lobe: 3.9 x 1.1 x 1.3 cm Overall Parenchyma: homogeneous Isthmus Thickness: 0.2 cm NODULES RIGHT: # of nodules measured on right: sub-centimeter cystic nodule noted LEFT: # of nodules measured on left: 0 ISTHMUS: # of nodules measured in the isthmus: 0 Bilateral neck scanned, lymph nodes visualized, largest = 1.8 x 0.7 x 0.9cm on the right and 1.3cm on the left . IMPRESSION: Couple lymph nodes present within the left neck at the palpable region.
== END | disposition home or self-care (01) ==
LOC: RADUSWWP 09:49
PROVIDERS: ATTEND Family Medicine
DX: R09.89 Other specified symptoms and signs involving the circulatory and respiratory systems (principal); R59.0 Localized enlarged lymph nodes
CPT/HCPCS: 76536

== ENCOUNTER 2024-11-29 19:12 | Emergency (ER) | payer BC, OTHER ==
[2024-11-29 19:21] VITALS: RESP 18; TEMP 98.2
--- NOTE | 2024-11-29 19:56 | ED ---
General Adult HPI - General Chief complaint: Back Pain/Injury Stated complaint: back pain 22 weeks preg Time Seen by Provider: 11/29/24 19:33 Source: patient Mode of arrival: ambulatory - History of Present Illness Initial comments: Dictation was produced using [employer] dictation software. please excuse any grammatical, word or spelling errors. Chief Complaint: 24-year-old female with sciatica History of Present Illness: Patient 24-year-old female she has past medical history of sciatica. She is 22 weeks and states that her last couple days she has been having worsening sciatica pain. Patient denies any complaints. She follows up with Dr. Virginie Green. Patient states that feels like her symptoms are bad that it causes tingling to her right lower extremity. States that it is painful whenever she tries to stand or sit on that area. The ROS documented in this emergency department record has been reviewed and confirmed by me. Those systems with pertinent positive or negative responses have been documented in the HPI. All other systems are other negative and/or noncontributory. - Related Data Home Medications Medication Instructions Recorded Confirmed No Known Home Medications 01/12/22 11/29/24 Allergies Allergy/AdvReac Type Severity Reaction Status Date / Time ibuprofen [From Motrin] Allergy Wheezing Verified 11/29/24 20:38 montelukast sodium Allergy depression Verified 11/29/24 20:38 [From Singulair] NSAIDS (Non-Steroidal Allergy Unknown Verified 11/29/24 20:38 Anti-Inflamma Review of Systems ROS Statement: Those systems with pertinent positive or pertinent negative responses have been documented in the HPI. ROS Other: All systems not noted in ROS Statement are negative. Past Medical History Past Medical History: Asthma Additional Past Medical History / Comment(s): migraines, History of Any Multi-Drug Resistant Organisms: None Reported Past Surgical History: Adenoidectomy, Ear Surgery, Tonsillectomy Additional Past Surgical History / Comment(s): tubes in ears, WISDOM TEETH REMOVED UNDER ANESTHESIA Past Anesthesia/Blood Transfusion Reactions: No Reported Reaction Past Psychological History: No Psychological Hx Reported Smoking Status: Vaper - Past Family History Mother Family Medical History: No Reported History General Exam - General Exam Comments Initial Comments: PHYSICAL EXAM: General Impression: Alert and oriented x3, not in acute distress HEENT: Normocephalic atraumatic, extra-ocular movements intact, pupils equal and reactive to light bilaterally, mucous membranes moist. Cardiovascular: Heart regular rate and rhythm Chest: Able to complete full sentences, no retractions, no tachypnea Abdomen: abdomen soft, non-tender, non-distended, no organomegaly Musculoskeletal: Pulses present and equal in all extremities, no peripheral edema Motor: no focal deficits noted Neurological: CN II-XII grossly intact, no focal motor or sensory deficits noted Skin: Intact with no visualized rashes Psych: Normal affect and mood Course Vital Signs 11/29/24 11/29/24 19:15 20:40 Temperature 98.2 F Pulse Rate 98 88 Respiratory 18 18 Rate Blood Pressure 126/75 122/73 O2 Sat by Pulse 99 97 Oximetry - Reevaluation(s) Reevaluation #1: 11/29/24 20:07 Given that patient is she does not qualify for steroids certain analgesics. Patient offered 2 mg IM morphine. Case discussed with Dr. Singh where states that he does not really have much recommendations except to refer patient to physical therapy. Medical Decision Making - Medical Decision Making Was pt. sent in by a medical professional or institution (, PA, CT TECHNICIAN, urgent care, hospital, or fdc...) When possible be specific @ -No Did you speak to anyone other than the patient for history (EMS, parent, family, police, friend...)? What history was obtained from this source @ -No Did you review nursing and triage notes (agree or disagree)? Why? @ -I reviewed and agree with nursing and triage notes Were old charts reviewed (outside hosp., previous admission, EMS record, old EKG, old radiological studies, urgent care reports/EKG's, fdc records)? Report findings @ -No old charts were reviewed Differential Diagnosis (chest pain, altered mental status, abdominal pain women, abdominal pain men, vaginal bleeding, musculoskeletal, weakness, fever, dyspnea, syncope, headache, dizziness, GI bleed, back pain, seizure, CVA, palpatations, mental health)? @ -Differential Back Pain: Strain, zoster, cauda equina syndrome, epidural abscess, vertebral osteomyelitis, discitis, fracture, subluxation, disc herniation, DJD, spinal stenosis, dissection, AAA, pancreatitis, peptic ulcer disease, pyelonephritis, kidney stone, this is not meant to be an all-inclusive list. EKG interpreted by me (3pts min.). @ -None done X-rays interpreted by me (1pt min.). @ -None done CT interpreted by me (1pt min.). @ -None done U/S interpreted by me (1pt. min.). @ -None done What testing was considered but not performed or refused? (CT, X-rays, U/S, labs)? Why? @ -None What meds were considered but not given or refused? Why? @ -None Was smoking cessation discussed for >3mins.? @ -No Were there social determinants of health that impacted care today? How? (Homelessness, low income, unemployed, alcoholism, drug addiction, transpo rtation, low edu. Level, literacy, decrease access to med. care, group home, rehab)? @ -No Was there de-escalation of care discussed even if they declined (Discuss DNR or withdrawal of care, Hospice)? DNR status @ -No What co-morbidities impacted this encounter? (DM, HTN, Smoking, COPD, CAD, Cancer, CVA, ARF, Chemo, Hep., AIDS, mental health diagnosis, sleep apnea, morbid obesity)? @ -None Was patient admitted / discharged? Hospital course, mention meds given and route, prescriptions, significant lab abnormalities, going to OR and other pertinent info. @ -24-year-old female with acute on chronic sciatica. Vital signs stable. Patient has no red flag features. Not a candidate for x-ray or analgesics or steroids. Case discussed with coding advisor recommended that there is not much for us to do except to refer her to physical therapy. Patient given 2 mg IM morphine. Patient did not feel any significant relief with the morphine. She states that she would like to be discharged and go up to the labor and delivery. Patient discharged. Did you discuss the management of the patient with other professionals (professionals i.e. , PA, CT TECHNICIAN, lab, RT, psych nurse, social media marketing manager, motion picture director, teacher, recreation officer, major case detective)? Give summary @ -No Was critical care preformed (if so, how long)? @ -No Undiagnosed new problem with uncertain prognosis? @ -No Drug Therapy requiring intensive monitoring for toxicity (Heparin, Nitro, Insulin, Cardizem)? @ -No Were any procedures done? @ -No Diagnosis/symptom? Acute, or Chronic, or Acute on Chronic? Uncomplicated (without systemic symptoms) or Complicated (systemic symptoms)? @ -Sciatica Side effects of treatment? @ -No Exacerbation, Progression, or Severe Exacerbation? @ -No Poses a threat to life or bodily function? How? (Chest pain, USA, SC, pneumonia, PE, COPD, DKA, ARF, appy, cholecystitis, CVA, Diverticulitis, Homicidal, Suicidal, threat to staff... and all critical care pts) @ -yes Disposition Clinical Impression: Sciatica Disposition: OTHER INSTITUTION NOT DEFINED Condition: Fair Instructions (If sedation given, give patient instructions): Sciatica (ED) Additional Instructions: [facility] [address] [place] [address] Get Directions Hours TUESDAY: 07:30 AM - 06:00 PM TUESDAY: 07:00 AM - 06:00 PM TUESDAY: 07:00 AM - 06:00 PM TUESDAY: 07:00 AM - 06:00 PM TUESDAY: 07:00 AM - 05:30 PM TUESDAY: TUESDAY: Is patient prescribed a controlled substance at d/c from ED?: No Referrals: Ed Camejo MD [STAFF PHYSICIAN] - 1-2 days Time of Disposition: 21:09 - Out of Hospital Transfer - Req. Specs Out of Hospital Transfer - Requested Specifics: Other Non-Acute (Labor and Delivery Unit)
[2024-11-29] MEDS: MORPHINE SULFATE 2 MG/ML SYRINGE IM STA (20:43)
[2024-11-29] MEDS: MORPHINE SULFATE 2 MG/ML SYRINGE IVP STA (20:49)
[2024-11-29 20:50] VITALS: PULSE 88
[2024-11-29 21:21] VITALS: BP 118/63
== END 2024-11-29 21:22 | disposition other institution (70) ==
LOC: EC 19:12
DX: O26.92 Pregnancy related conditions, unspecified, second trimester (principal); M54.30 Sciatica, unspecified side; F17.290 Nicotine dependence, other tobacco product, uncomplicated; Z3A.22 22 weeks gestation of pregnancy
CPT/HCPCS: 99284; 96374; J2270

== ENCOUNTER 2024-11-29 21:32 | Outpatient (CLI) | payer BC, OTHER ==
[2024-11-29 22:55] VITALS: BP 110/58; PULSE 88; RESP 16; TEMP 98.1
--- NOTE | 2024-12-21 11:14 | P.MSEPDOC ---
Presenting Problems - Arrival Data Date of Arrival on Unit: 11/29/24 Time of Arrival on Unit: 21:32 Mode of Transport: Wheelchair - Complaint OB-Reason for Admission/Chief Complaint: Pain Comment: Pt arrives from ER, was evaluated in ER for sciatic nerve pain, 10 sharp pain Medical History - Information : 2 Para: 1 Term: 1 : 0 Abortions: Spontaneous or Elective: 0 Number of Living Children: 1 - Gestational Age Gestational Age by [place] (wks/days): 22 Weeks and 2 Days Review of Systems - Review of Systems Constitutional: No problems Breast: No problems ENT: No problems Cardiovascular: No problems Respiratory: No problems Gastrointestinal: No problems Genitourinary: No problems Musculoskeletal: No problems Neurological: No problems Skin: No problems Vital Signs - Temperature Temperature: 98.1 F Temperature Source: Temporal Artery Scan - Pulse Pulse Oximetery Pulse Rate: 88 Pulse Assessment Method: Pulse Oximetry - Respirations Respiratory Rate: 16 Oxygen Delivery Method: Room Air O2 Sat by Pulse Oximetry: 98 - Blood Pressure Right Arm Blood Pressure: 110/58 Blood Pressure Mean: 75 Blood Pressure Source: Automatic Cuff Medical Screen Scoring - Cervical Exam Membranes: Intact - Uterine Contractions Intensity: Absent Resting: Soft to palpation Physician Notification - Physician Notified Physician Notified Date: 11/29/24 Physician Notified Time: 21:52 Physician: Ed Camejo New Order Received: No - Notification Comment Comment: Dr. Camejo already aware of pt due to her being evaulated in ER, notified of FHT, abdomen soft to palpation, VSS Maternal Triage Index - Maternal Triage Index Presenting for scheduled procedure w/no complaint: No - Stat/Priority 1 Stat Priority 1: No - Urgent/Priority 2 Urgent Priority 2: Yes Provider Notified: Ed Camejo Provider Notified Time: 21:52 Criteria Met for Priority 2: 10 pain Disposition - Disposition OB Disposition: Discharge to home Discharge Date: 11/29/24 Discharge Time: 22:12 I agree with the RN Medical Screening Exam: Yes Case reviewed; plan agreed upon as documented in EMR&OBIX.: Yes Diagnosis: RELATED CONDITIONS, UNSPECIFIED, SECOND TRIMESTER
== END 2024-11-29 22:12 | disposition home or self-care (01) ==
LOC: FBPOP 21:32
PROVIDERS: ATTEND Obstetrics & Gynecology
DX: O26.92 Pregnancy related conditions, unspecified, second trimester (principal); Z3A.22 22 weeks gestation of pregnancy; Z87.891 Personal history of nicotine dependence; Z88.6 Allergy status to analgesic agent; Z88.8 Allergy status to other drugs, medicaments and biological substances; Z91.048 Other nonmedicinal substance allergy status
CPT/HCPCS: 99213

== ENCOUNTER 2025-01-30 18:36 | Outpatient (CLI) | payer BC, OTHER ==
[2025-01-30 21:13] VITALS: BP 109/57; PULSE 87; RESP 18; TEMP 97.8
--- NOTE | 2025-03-11 10:17 | P.MSEPDOC ---
Presenting Problems - Arrival Data Date of Arrival on Unit: 01/30/25 Time of Arrival on Unit: 18:36 Mode of Transport: Ambulatory - Complaint OB-Reason for Admission/Chief Complaint: PIH Comment: Patient presents to triage for compaints of headache, blurred vision and right lower quadrant pain. Medical History - Information : 2 Para: 1 Term: 1 : 0 Abortions: Spontaneous or Elective: 0 Number of Living Children: 1 - Gestational Age Gestational Age by ISRA[place] (wks/days): 31 Weeks and 1 Days Review of Systems - Review of Systems Constitutional: No problems Breast: No problems ENT: No problems Cardiovascular: No problems Respiratory: No problems Gastrointestinal: No problems Genitourinary: No problems Musculoskeletal: No problems Neurological: No problems Skin: No problems Vital Signs - Temperature Temperature: 97.8 F Temperature Source: Temporal Artery Scan - Pulse Pulse Oximetery Pulse Rate: 87 Pulse Assessment Method: Pulse Oximetry - Respirations Respiratory Rate: 18 Oxygen Delivery Method: Room Air - Blood Pressure Right Arm Blood Pressure: 109/57 Blood Pressure Mean: 74 Blood Pressure Source: Automatic Cuff Maternal Triage Index - Maternal Triage Index Presenting for scheduled procedure w/no complaint: No - Stat/Priority 1 Stat Priority 1: No - Urgent/Priority 2 Urgent Priority 2: Yes Provider Notified: Alena Gonzáles Provider Notified Time: 19:11 Criteria Met for Priority 2: Patient presents to triage for compaints of headache, blurred vision and right lower quadrant pain. Disposition - Disposition OB Disposition: Discharge to home Discharge Date: 01/30/25 Discharge Time: 19:40 I agree with the RN Medical Screening Exam: Yes Case reviewed; plan agreed upon as documented in EMR&OBIX.: Yes Diagnosis: HEADACHE, UNSPECIFIED
== END 2025-01-30 21:13 ==
LOC: FBPOP 18:36
PROVIDERS: ATTEND Obstetrics & Gynecology
DX: O26.893 Other specified pregnancy related conditions, third trimester (principal); R51.9 Headache, unspecified; Z88.6 Allergy status to analgesic agent; Z88.8 Allergy status to other drugs, medicaments and biological substances; Z87.891 Personal history of nicotine dependence; Z3A.31 31 weeks gestation of pregnancy
CPT/HCPCS: 59025; 99215

== ENCOUNTER 2025-03-05 11:16 | Outpatient (CLI) | payer BC, OTHER ==
[2025-03-05 12:16] VITALS: BP 115/62; PULSE 88; RESP 16; TEMP 97.9
--- NOTE | 2025-03-12 20:40 | P.MSEPDOC ---
Presenting Problems - Arrival Data Date of Arrival on Unit: 03/05/25 Time of Arrival on Unit: 11:16 Mode of Transport: Ambulatory - Complaint OB-Reason for Admission/Chief Complaint: Decreased Movement Medical History - Information : 2 Para: 1 Term: 1 : 0 Abortions: Spontaneous or Elective: 0 Number of Living Children: 1 - Gestational Age Gestational Age by IS[place] (wks/days): 36 Weeks and 0 Days Review of Systems - Review of Systems Constitutional: No problems Breast: No problems ENT: No problems Cardiovascular: No problems Respiratory: No problems Gastrointestinal: No problems Genitourinary: No problems Musculoskeletal: No problems Neurological: No problems Skin: No problems Vital Signs - Temperature Temperature: 97.9 F Temperature Source: Temporal Artery Scan - Pulse Right Sitting Pulse Rate: 88 Pulse Assessment Method: Pulse Oximetry - Respirations Respiratory Rate: 16 Oxygen Delivery Method: Room Air O2 Sat by Pulse Oximetry: 96 - Blood Pressure Right Arm Blood Pressure: 115/62 Blood Pressure Mean: 79 Blood Pressure Source: Automatic Cuff Medical Screen Scoring - Assessment - Baby A Baseline FHR: 120 Heart Rate - NICHD Category: Category I (Normal) NST: Reactive Physician Notification - Physician Notified Physician Notified Date: 03/05/25 Physician Notified Time: 12:04 Physician: Ghada Valentine New Order Received: Yes (d/c) Maternal Triage Index - Urgent/Priority 2 Urgent Priority 2: Yes Provider Notified: Ghada Valentine Provider Notified Time: 11:55 Criteria Met for Priority 2: reactive nst, no contractions, vitals wnl Disposition - Disposition OB Disposition: Discharge to home Discharge Date: 03/05/25 Discharge Time: 12:04 I agree with the RN Medical Screening Exam: Yes Case reviewed; plan agreed upon as documented in EMR&OBIX.: Yes Diagnosis: DECREASED MOVEMENTS, THIRD TRIMESTER, FETUS 1
== END 2025-03-05 12:04 | disposition home or self-care (01) ==
LOC: FBPOP 11:16
PROVIDERS: ATTEND Obstetrics & Gynecology
DX: O36.8131 Decreased fetal movements, third trimester, fetus 1 (principal); Z88.6 Allergy status to analgesic agent; Z88.8 Allergy status to other drugs, medicaments and biological substances; Z3A.36 36 weeks gestation of pregnancy
CPT/HCPCS: 59025; 99213

== ENCOUNTER 2025-03-26 06:00 | Inpatient (IN) | payer BC, OTHER ==
[2025-03-26] MEDS ORDERED: TRANEXAMIC 1,000 MG/100ML-NACL 1,000 MG in EMPTY BAG 1 BAG IV PRN (06:13)
[2025-03-26] MEDS ORDERED: CARBOPROST TROMETHAMINE 250 MCG/ML 1 ML AMP IM PRN (06:13)
[2025-03-26] MEDS ORDERED: OXYTOCIN 10 UNIT/ML 1 ML VIAL IM PRN (06:13)
[2025-03-26] MEDS ORDERED: TERBUTALINE 1 MG/ML VIAL SQ PRN (06:13)
[2025-03-26] MEDS ORDERED: LIDOCAINE 0.5% (PF) 5 MG/ML (50 ML SDV) SQ PRN (06:13)
[2025-03-26 06:28] VITALS: RESP 16
[2025-03-26] MEDS: LACTATED RINGERS 1,000 ML IV SCH (06:30)
[2025-03-26] MEDS: OXYTOCIN 30 UNITS/500 ML NS 30 UNIT in SALINE 1 500ML.BAG IV SCH (06:30)
[2025-03-26 06:49] LABS: Basophils # (A) 0.04 10*3/uL (0.00-0.10); Basophils % (A) 0.4 %; Eosinophils # (A) 0.23 10*3/uL (0.04-0.35); Eosinophils % (A) 2.2 %; HCT 30.3 % (37.2-46.3); HGB 9.6 g/dL (12.0-15.0); Lymphocytes # (A) 2.36 10*3/uL (0.90-5.00); Lymphocytes % (A) 22.3 %; MCH 24.9 pg (27.0-32.0); MCHC 31.7 g/dL (32.0-37.0); MCV 78.5 fL (80.0-97.0); Monocytes # (A) 0.90 10*3/uL (0.20-1.00); Monocytes % (A) 8.5 %; Neutrophils # (A) 6.94 10*3/uL (1.80-7.70); Neutrophils % (A) 65.7 %; Platelet Count 307 10*3/uL (140-440); RBC 3.86 10*6/uL (4.10-5.20); RDW 14.2 % (11.5-14.5); WBC 10.56 10*3/uL (4.50-10.00)
--- NOTE | 2025-03-26 08:43 | P.HPOB ---
History of Present Illness H&P Date: 03/26/25 Chief Complaint: 39-0/7 weeks, elective induction The patient is a 24-year-old 2 para 1-0-0-1 admitted at 39-0/7 weeks as established by last menstrual period and confirmed by 11-week ultrasound. She is admitted for elective induction of labor with all signs reassuring, category 1 heart rate tracing. Her has been essentially uncomplicated though she had some issues with sciatic pain in the mid trimester which has been treated and resolved. She is Rh- and received RhoGAM at 28 weeks. Group B strep status is negative. Obstetrical history: 2 para 1-0-0-1 with 1 term vaginal delivery without complications. Current statistics are listed in history of present illness. EDC of 04/02/2020 the 5 was established by last menstrual period and confirmed by 11-week ultrasound. Laboratory workup demonstrates a blood type of O- with a negative antibody screen. Rubella status is immune. The remainder of the laboratory workup was within normal limits. Early Glucola and second trimester Glucola were normal and group B strep status is negative. Gynecologic history: Unremarkable with no history of any infections to include STDs. Review of Systems Review of systems is confined to history of present illness. Past Medical History Past Medical History: Asthma Additional Past Medical History / Comment(s): migraines, History of Any Multi-Drug Resistant Organisms: None Reported Past Surgical History: Adenoidectomy, Ear Surgery, Tonsillectomy Additional Past Surgical History / Comment(s): tubes in ears, WISDOM TEETH REMOVED UNDER ANESTHESIA Past Anesthesia/Blood Transfusion Reactions: No Reported Reaction Past Psychological History: No Psychological Hx Reported Additional Psychological History / Comment(s): prev on escitalopram and buproprion-CURRENTLY UNDER CONTROL Smoking Status: Never smoker Past Drug Use History: None Reported - Past Family History Mother Family Medical History: No Reported History Medications and Allergies Home Medications Medication Instructions Recorded Confirmed Type No Known Home Medications 03/26/25 03/26/25 History Allergies Allergy/AdvReac Type Severity Reaction Status Date / Time ibuprofen [From Motrin] Allergy Wheezing Verified 03/26/25 06:13 montelukast sodium Allergy depression Verified 03/26/25 06:13 [From Singulair] NSAIDS (Non-Steroidal Allergy Unknown Verified 03/26/25 06:13 Anti-Inflamma Exam Vital Signs Temp Pulse Resp BP Pulse Ox 03/26/25 06:12 98.0 F 101 H 16 123/66 95 Intake and Output 03/25/25 03/26/25 03/26/25 22:59 06:59 14:59 Other: Weight 108.409 kg In general, this is a well-developed, well-nourished white female in no acute distress. Her heart has a regular rhythm and rate without murmur. Her lungs are clear to auscultation bilaterally in all gomez. Her abdomen is gravid, nondistended, has normal active bowel sounds, soft, nontender, and without any palpable masses aside from the uterine fundus. Her extremities are without any cyanosis, clubbing, or significant edema and are nontender to palpation bilaterally. Digital cervical examination demonstrates her cervix to be approximately 2 cm dilated, 50% effaced, with the vertex and presentation at -2 station. Artificial rupture of membranes is carried out demonstrating clear fluid. Results Result Diagrams: 03/26/25 06:25 Abnormal Lab Results - Last 24 Hours (Table) 03/26/25 Range/Units 06:25 WBC 10.56 H (4.50-10.00) 10*3/uL RBC 3.86 L (4.10-5.20) 10*6/uL Hgb 9.6 L (12.0-15.0) g/dL Hct 30.3 L (37.2-46.3) % MCV 78.5 L (80.0-97.0) fL MCH 24.9 L (27.0-32.0) pg MCHC 31.7 L (32.0-37.0) g/dL Immature Gran # 0.09 H (0.00-0.04) 10*3/uL Assessment and Plan (1) Term Current Visit: Yes Status: Acute Code(s): Z34.90 - ENCNTR FOR SUPRVSN OF NORMAL , UNSP, UNSP TRIMESTER SNOMED Code(s): 05805110 Plan: The patient has been admitted for elective induction. Pitocin augmentation has been started and she has undergone artificial rupture of membranes. She will have close maternal and surveillance and expectant management will be practiced. She is a good candidate for either IV or epidural analgesia, which ever she may choose.
[2025-03-26] MEDS: BUTORPHANOL 1 MG/ML 1 ML VIAL IV PRN (12:22)
[2025-03-26] MEDS ORDERED: fentaNYL (PF) 50 MCG/ML 5 ML AMP ONE (14:14)
[2025-03-26] MEDS ORDERED: ROPIVACAINE 5 MG/ML 30 ML VIAL ONE (14:14)
[2025-03-26] MEDS ORDERED: SODIUM CHLORIDE 0.9% 250 ML BAG ONE (14:14)
[2025-03-26] MEDS: METHYLERGONOVINE 0.2 MG/ML 1 ML AMP IM PRN (16:49)
[2025-03-26] MEDS ORDERED: BENZOCAINE/MENTHOL SPRAY 1 GM/SPRAY AEROSOL TOPICAL PRN (17:00)
[2025-03-26] MEDS ORDERED: ZOLPIDEM 5 MG TAB PO PRN (17:00)
[2025-03-26] MEDS ORDERED: SIMETHICONE 80 MG CHEWABLE PO PRN (17:00)
[2025-03-26] MEDS ORDERED: OXYTOCIN 30 UNITS/500 ML NS 30 UNIT in SALINE 1 500ML.BAG IV SCH (17:00)
[2025-03-26] MEDS ORDERED: HYDROCORTISONE 2.5% RECTAL CREAM 30 GM TUBE RECTAL PRN (17:00)
[2025-03-26] MEDS ORDERED: diphenhydrAMINE 25 MG CAP PO PRN (17:00)
[2025-03-26] MEDS ORDERED: LANOLIN CREAM 1 GM TUBE TOPICAL PRN (17:00)
[2025-03-26] MEDS ORDERED: IBUPROFEN 800 MG TAB PO PRN (17:00)
[2025-03-26] MEDS ORDERED: diphenhydrAMINE 50 MG/ML 1 ML VIAL IVP PRN ×2 (17:00)
--- NOTE | 2025-03-26 17:05 | P.PROBDLV ---
Vaginal Delivery Note - . Vaginal Delivery Note: Date of delivery/service: 03/26/2025 The patient is a 24-year-old 2 para 1-0-0-1 admitted at 39-0/7 weeks by good dating parameters. She is admitted for elective induction of labor with all signs reassuring, category 1 heart rate tracing. Her was essentially uncomplicated though she was Rh- and received RhoGAM at 28 weeks. She did have some sciatic issues which responded to physical therapy. Group B strep status is negative. On labor and delivery, she had Pitocin started and underwent artificial rupture of membranes for clear fluid. She made progress to the active phase of labor at which time an epidural catheter was attempted to be placed but failed for unclear reasons. She received a dose of Stadol and another anesthesiologist presented and was able to place the epidural successfully. She then progressed through the active phase of labor consistently to complete and then pushed over the course of approximately 3-4 contractions to a normal spontaneous vaginal delivery of a viable 7 pound 12.5 ounce baby boy with Apgars of 9 at 1 minute and 9 at 5 minutes delivered in the right occiput anterior position. The placenta was delivered spontaneously, intact, and grossly normal with a grossly normal, centrally inserted three- vessel cord. There was a very small first-degree midline perineal laceration which was repaired with a single [id number] stitch of 3-0 chromic catgut without difficulty. All sponge, instrument, and needle counts were correct. There were no complications. Estimated blood loss was approximately 150 mL. Both mother and infant are resting comfortably in recovery.
[2025-03-26] MEDS: SENNOSIDES-DOCUSATE SODIUM 1 EACH TAB PO SCH (21:14)
[2025-03-26] MEDS: ACETAMINOPHEN TAB 500 MG TAB PO PRN (22:32)
[2025-03-27 06:51] LABS: Basophils # (A) 0.05 10*3/uL (0.00-0.10); Basophils % (A) 0.4 %; Eosinophils # (A) 0.14 10*3/uL (0.04-0.35); Eosinophils % (A) 1.1 %; HCT 30.0 % (37.2-46.3); HGB 9.3 g/dL (12.0-15.0); Lymphocytes # (A) 2.55 10*3/uL (0.90-5.00); Lymphocytes % (A) 20.9 %; MCH 24.3 pg (27.0-32.0); MCHC 31.0 g/dL (32.0-37.0); MCV 78.3 fL (80.0-97.0); Monocytes # (A) 1.01 10*3/uL (0.20-1.00); Monocytes % (A) 8.3 %; Neutrophils # (A) 8.37 10*3/uL (1.80-7.70); Neutrophils % (A) 68.4 %; Platelet Count 332 10*3/uL (140-440); RBC 3.83 10*6/uL (4.10-5.20); RDW 14.3 % (11.5-14.5); WBC 12.23 10*3/uL (4.50-10.00)
--- NOTE | 2025-03-27 08:54 | P.DS ---
Providers Date of admission: 03/26/25 06:00 Expected date of discharge: 03/27/25 Attending physician: Ed Camejo Primary care physician: Stated None - Discharge Diagnosis(es) (1) Term Current Visit: Yes Status: Acute (2) Normal spontaneous vaginal delivery Current Visit: Yes Status: Acute Hospital Course: The patient is a 24-year-old 2 para 1-0-0-1 admitted at 39-0/7 weeks by good dating parameters. She is admitted for elective induction with all signs reassuring, category 1 heart rate tracing. Her was uncomplicated. She is Rh- and received RhoGAM at 28 weeks. Group B strep status is negative. On labor and delivery, she had Pitocin started followed by artificial rupture of membranes for clear fluid. Initial attempts to place an epidural catheter around the onset of the active phase of labor failed but a second anesthesiologist was able to place it. She then progressed fairly quickly to complete and pushed to a normal spontaneous vaginal delivery of a viable 7 pound 12.5 ounce baby boy with Apgars of 9 at 1 minute and 9 at 5 [place]. Her course was unremarkable with vital signs remaining stable and her temperature was afebrile throughout. She was deemed stable for discharge on day #1 and was discharged home to follow-up in the office in 6 weeks time routinely. Discharge instructions included calling for any significantly increased bleeding or foul-smelling lochia, significantly increased fever or abdominal pain, perineal complaints, breast complaints, or anything else that concerned her. She was additionally instructed to have nothing in the vagina for at least 6 weeks time to include intercourse. She understood her instructions and agrees to follow-up as noted above. Discharge medications included continued vitamins as she has opted to breast- feed. She was otherwise to use [id number] analgesic pain medications. Maternal blood type is O- and cord blood was sent for evaluation for the necessity of RhoGAM prior to discharge. Rubella status is immune. Procedures: #1. Pitocin induction #2. Artificial rupture of membranes #3. Epidural analgesia #4. Normal spontaneous vaginal delivery Patient Condition at Discharge: Stable Plan - Discharge Summary New Discharge Prescriptions: No Action No Known Home Medications Discharge Medication List No Known Home Medications 03/26/25 [History] Follow up Appointment(s)/Referral(s): Ed Camejo MD [STAFF PHYSICIAN] - 05/07/25 1:15 pm Discharge Disposition: HOME SELF-CARE
[2025-03-27 16:06] VITALS: BP 104/63; PULSE 69; TEMP 97.9
== END 2025-03-27 17:50 | disposition home or self-care (01) | DRG 807 ==
LOC: 4FBP 06:00
PROVIDERS: ADMIT Obstetrics & Gynecology; ATTEND Obstetrics & Gynecology
PROC: 10907ZC Drainage of Amniotic Fluid, Therapeutic from Products of Conception, Via Natural or Artificial Opening (ICD-10-PCS; principal; 2025-03-26)
PROC: 10E0XZZ Delivery of Products of Conception, External Approach (ICD-10-PCS; principal; 2025-03-26)
PROC: 0HQ9XZZ Repair Perineum Skin, External Approach (ICD-10-PCS; principal; 2025-03-26)
PROC: 3E033VJ Introduction of Other Hormone into Peripheral Vein, Percutaneous Approach (ICD-10-PCS; principal; 2025-03-26)
DX: O26.893 Other specified pregnancy related conditions, third trimester (principal); J45.909 Unspecified asthma, uncomplicated; O99.52 Diseases of the respiratory system complicating childbirth; O70.0 First degree perineal laceration during delivery; Z88.6 Allergy status to analgesic agent; Z88.8 Allergy status to other drugs, medicaments and biological substances; Z67.41 Type O blood, Rh negative; Z3A.39 39 weeks gestation of pregnancy; Z37.0 Single live birth
CPT/HCPCS: 85025; 86850; 86900; 86901